=== PATIENT | male | born 1975 | race Caucasian/White ===

== ENCOUNTER 2018-01-29 11:19 | Observation (INO) | payer OTHER ==
[~2018-01-29] VITALS: Ht 175.3 cm; Wt 100.0 kg
[~2018-01-29 11:19] MED LIST: CIPROFLOXACN500 MG PO; LEVAQUIN500 MG PO; MELATONIN1 M1 PO; METRONIDAZOL500 MG PO; MULTIVITAMIN ME1 TAB PO
[2018-01-29] MEDS ORDERED: TOPIRAMATE50 MG PO (11:25)
[2018-01-29] MEDS ORDERED: ESCITALOPRAM OX10 MG PO (11:26)
[2018-01-29] MEDS ORDERED: DIVALPROEX SOD250 MG PO (11:26)
[2018-01-29 11:54] LABS: URINE BILIRUBIN - DIPSTICK NEGATIVE (NEGATIVE); URINE BLOOD DIPSTICK NEGATIVE (NEGATIVE); URINE COLOR YELLOW; URINE GLUCOSE - DIPSTICK NEGATIVE (NEGATIVE); URINE KETONE NEGATIVE (NEGATIVE); URINE LEUK ESTERASE NEGATIVE (NEGATIVE); URINE NITRITE - DIPSTICK NEGATIVE (Negative); URINE PROTEIN - DIPSTICK NEGATIVE (NEG-TRACE); URINE SPECIFIC GRAVITY <=1.005; URINE UROBILINOGEN - DIPSTICK 0.2 E.U./dL (0.2)
[2018-01-29 12:02] LABS: URINE CLARITY CLEAR
[2018-01-29 12:04] LABS: HEMATOCRIT 45.6 % (39.0-50.0); HEMOGLOBIN 15.4 g/dl (14.0-18.0); IMMATURE GRANULOCYTES 0.3 % (0.0-1.0); MEAN CELL VOLUME 84.3 fL CALC (80.0-100.0); MEAN CORPUSCULAR HGB 28.5 pG CALC (26.0-32.0); MEAN CORPUSCULAR HGB CONC 33.8 g/L CALC (32.0-36.0); NEUT# 7.07 thou/uL (1.82-7.42); RED BLOOD COUNT 5.41 mill/uL (4.70-6.10); RED CELL DISTRI WIDTH 15.2 % (11.5-15.5)
[2018-01-29 12:12] LABS: ALBUMIN 4.7 g/dL (3.2-5.0); ALKALINE PHOSPHATASE 68 u/l (38-126); ANION GAP 20 (6-22 (CALC)); BILIRUBIN, TOTAL 1.1 mg/dL (0.0-1.4); BUN 12 mg/dL (9-20); BUN/CREATININE RATIO 12 (12-20 (CALC)); CARBON DIOXIDE 20 mmol/l (22-30); CHLORIDE 103 mmol/l (95-108); GFR > 60 ML/MIN (>=60 (CALC)); GFR FOR AFR.AMER. > 60 ML/MIN (>=60 (CALC)); LIPASE 31 u/l (23-300); SGOT/AST 21 u/l (17-59); SGPT/ALT 36 u/l (21-72); SODIUM 139 mmol/l (137-146); TOTAL PROTEIN 7.6 g/dL (6.3-8.2)
[2018-01-29 12:14] LABS: POTASSIUM 3.5 mmol/l (3.5-5.1)
[2018-01-29 14:30] VITALS: BP 117/76
[2018-01-29 19:15] VITALS: BP 108/67
[2018-01-29 23:25] VITALS: BP 123/72
[2018-01-29 23:27] LABS: C. DIFFICILE TOXIN A&B NEGATIVE (NEGATIVE)
[2018-01-30 04:40] VITALS: BP 91/61
[2018-01-30 07:44] VITALS: BP 107/61
[2018-01-30] MEDS ORDERED: METRONIDAZOL500 MG PO (11:27)
== END 2018-01-30 12:30 | disposition home or self-care (01) | DRG 392 ==
LOC: ED 11:19 → ED-I 13:32 → ED 13:50 → MS2 13:51
PROVIDERS: Family Medicine; ADMIT Internal Medicine; ATTEND Internal Medicine
DX: R19.7 Diarrhea, unspecified (principal); R11.0 Nausea; E86.0 Dehydration; I10 Essential (primary) hypertension; F31.9 Bipolar disorder, unspecified; F43.10 Post-traumatic stress disorder, unspecified; R73.03 Prediabetes; Z85.820 Personal history of malignant melanoma of skin
CPT/HCPCS: G0378; Q9967

== ENCOUNTER → 2019-01-05 | Outpatient (REF) ==
[~2019-01-05] MED LIST changes: +DIVALPROEX SOD250 MG PO; +ESCITALOPRAM OX10 MG PO; +TOPIRAMATE50 MG PO
== END | disposition home or self-care (01) | DRG 642 ==
LOC: LAB 07:48
PROVIDERS: ATTEND Nurse Practitioner Family
DX: E78.2 Mixed hyperlipidemia (principal); R53.83 Other fatigue; R63.5 Abnormal weight gain

== ENCOUNTER 2019-04-02 18:57 | Emergency (ER) | payer OTHER ==
[~2019-04-02] VITALS: Ht 175.3 cm; Wt 100.0 kg
[2019-04-02] MEDS ORDERED: DIVALPROEX SOD500 M2 PO (19:18)
[2019-04-02] MEDS ORDERED: TOPAMAX50 MG PO (19:18)
[2019-04-02] MEDS ORDERED: ESCITALOPRAM OX20 MG PO (19:18)
[2019-04-02 21:00] VITALS: BP 116/84
== END 2019-04-02 21:00 | disposition home or self-care (01) | DRG 556 ==
LOC: ED 18:57
DX: M25.571 Pain in right ankle and joints of right foot (principal); M25.471 Effusion, right ankle

== ENCOUNTER 2019-06-30 07:38 | Emergency (ER) | payer OTHER ==
[~2019-06-30] VITALS: Ht 175.3 cm; Wt 108.2 kg
[~2019-06-30 07:38] MED LIST changes: +DIVALPROEX SOD500 M2 PO; +ESCITALOPRAM OX20 MG PO; +TOPAMAX50 MG PO
[2019-06-30] MEDS ORDERED: PROTONIX20 MG PO (08:00)
[2019-06-30] MEDS ORDERED: DEPAKOTE250 MG PO (08:06)
[2019-06-30] MEDS ORDERED: VITAMIN D2000 UNI1 PO (08:07)
[2019-06-30] MEDS ORDERED: TORADOL PO (08:46)
[2019-06-30] MEDS ORDERED: MEDDOSEPAK PO (08:46)
[2019-06-30 09:00] VITALS: BP 122/77
== END 2019-06-30 09:20 | disposition home or self-care (01) | DRG 556 ==
LOC: ED 07:38
DX: M25.562 Pain in left knee (principal)

== ENCOUNTER 2020-01-16 | Emergency (ER) | payer OTHER ==
[~2020-01-16] MED LIST changes: +DEPAKOTE250 MG PO; +MEDDOSEPAK PO; +PROTONIX20 MG PO; +TORADOL PO; +VITAMIN D2000 UNI1 PO
[2020-01-16] MEDS ORDERED: ABILIFY10 M1 PO (08:04)
[2020-01-16] MEDS ORDERED: PROTONIX40 M2 PO (08:05)
== END 2020-01-16 09:42 | disposition home or self-care (01) | DRG 103 ==
DX: G43.909 Migraine, unspecified, not intractable, without status migrainosus (principal)

== ENCOUNTER 2020-03-29 | Emergency (ER) | payer OTHER ==
[~2020-03-29] MED LIST changes: +ABILIFY10 M1 PO; +PROTONIX40 M2 PO
[2020-03-29 10:39] LABS: HEMATOCRIT 42.4 % (39.0-50.0); HEMOGLOBIN 14.1 g/dl (14.0-18.0); IMMATURE GRANULOCYTES 0.7 % (0.0-5.0); MEAN CELL VOLUME 84.6 fL CALC (80.0-100.0); MEAN CORPUSCULAR HGB 28.1 pG CALC (26.0-32.0); MEAN CORPUSCULAR HGB CONC 33.3 g/dL CAL (32.0-36.0); NEUT# 2.94 thou/uL (1.82-7.42); RED BLOOD COUNT 5.01 mill/uL (4.70-6.10)
[2020-03-29 11:02] LABS: ALBUMIN 4.1 g/dL (3.2-5.0); ALKALINE PHOSPHATASE 76 u/l (38-126); AMYLASE 36 u/l (30-110); ANION GAP 14 (6-22 (CALC)); BILIRUBIN, TOTAL 0.5 mg/dL (0.0-1.4); BUN 10 mg/dL (9-20); BUN/CREATININE RATIO 13 (12-20 (CALC)); CARBON DIOXIDE 21 mmol/l (22-30); CHLORIDE 107 mmol/l (95-108); CREATININE 0.8 mg/dL (0.7-1.3); GFR > 60 ML/MIN (>=60 (CALC)); GFR FOR AFR.AMER. > 60 ML/MIN (>=60 (CALC)); LIPASE 64 u/l (23-300); POTASSIUM 4.2 mmol/l (3.5-5.1); SGOT/AST 31 u/l (17-59); TOTAL PROTEIN 7.1 g/dL (6.3-8.2)
[2020-03-29 11:06] LABS: SODIUM 138 mmol/l (137-146)
[2020-03-29 11:30] LABS: URINE BILIRUBIN - DIPSTICK NEGATIVE (NEGATIVE); URINE BLOOD DIPSTICK NEGATIVE (NEGATIVE); URINE COLOR YELLOW; URINE GLUCOSE - DIPSTICK NEGATIVE (NEGATIVE); URINE KETONE NEGATIVE (NEGATIVE); URINE LEUK ESTERASE NEGATIVE (NEGATIVE); URINE NITRITE - DIPSTICK NEGATIVE (Negative); URINE PH 7.5 (4.5-8.0); URINE PROTEIN - DIPSTICK NEGATIVE (NEG-TRACE); URINE UROBILINOGEN - DIPSTICK 0.2 E.U./dL (0.2)
[2020-03-29] MEDS ORDERED: COLACE100 MG PO (12:50)
== END 2020-03-29 13:00 | disposition home or self-care (01) | DRG 392 ==
DX: K59.00 Constipation, unspecified (principal)
CPT/HCPCS: Q9967

== ENCOUNTER 2022-10-10 07:32 | Emergency (ER) | payer BC ==
[~2022-10-10] VITALS: Ht 175.3 cm; Wt 115.0 kg
[~2022-10-10 07:32] MED LIST changes: +COLACE100 MG PO
[2022-10-10 08:03] VITALS: BP 125/85
[2022-10-10] MEDS ORDERED: CRESTOR20 MG PO (08:08)
[2022-10-10 08:30] VITALS: BP 110/76
[2022-10-10 08:52] LABS: ALBUMIN 4.1 g/dL (3.2-5.0); ALKALINE PHOSPHATASE 72 u/l (38-126); ANION GAP 15 (6-22 (CALC)); BILIRUBIN, TOTAL 0.4 mg/dL (0.0-1.4); BUN 8 mg/dL (9-20); BUN/CREATININE RATIO 11 (12-20 (CALC)); CARBON DIOXIDE 22 mmol/l (22-30); CHLORIDE 108 mmol/l (95-108); CREATININE 0.7 mg/dL (0.7-1.3); GFR FOR AFR.AMER. > 60 ML/MIN (>=60 (CALC)); GFR OTHER RACES > 60 ML/MIN (>=60 (CALC)); LIPASE 79 u/l (23-300); POTASSIUM 4.1 mmol/l (3.5-5.1); SGOT/AST 32 u/l (17-59); SODIUM 141 mmol/l (137-146); TOTAL PROTEIN 7.4 g/dL (6.3-8.2)
[2022-10-10 09:16] LABS: HEMATOCRIT 38.7 % (39.0-50.0); HEMOGLOBIN 12.8 g/dl (14.0-18.0); IMMATURE GRANULOCYTES 0.2 % (0.0-5.0); MEAN CELL VOLUME 85.2 fL CALC (80.0-100.0); MEAN CORPUSCULAR HGB 28.2 pG CALC (26.0-32.0); MEAN CORPUSCULAR HGB CONC 33.1 g/dL CAL (32.0-36.0); NEUT# 3.53 thou/uL (1.82-7.42); RED BLOOD COUNT 4.54 mill/uL (4.70-6.10); RED CELL DISTRI WIDTH 14.6 % (11.5-15.5)
[2022-10-10] MEDS ORDERED: METRONIDAZOLE500 MG PO (10:08)
[2022-10-10] MEDS ORDERED: ZOFRAN4 MG/TAB PO (10:08)
[2022-10-10] MEDS ORDERED: CIPROFLOXACN500 MG PO (10:08)
[2022-10-10 10:39] VITALS: BP 110/76
== END 2022-10-10 10:50 | disposition home or self-care (01) | DRG 392 ==
LOC: ED 07:32
PROVIDERS: Family Medicine
DX: K52.9 Noninfective gastroenteritis and colitis, unspecified (principal)
CPT/HCPCS: Q9967

== ENCOUNTER 2023-04-04 23:00 | Emergency (ER) | payer OTHER ==
[~2023-04-04] VITALS: Ht 175.3 cm; Wt 108.0 kg
[~2023-04-04 23:00] MED LIST changes: +CRESTOR20 MG PO; +METRONIDAZOLE500 MG PO; +ZOFRAN4 MG/TAB PO
[2023-04-04 23:11] VITALS: BP 130/87
[2023-04-04 23:15] VITALS: BP 127/85
[2023-04-04 23:30] VITALS: BP 125/88
[2023-04-04 23:45] VITALS: BP 117/82
[2023-04-04 23:46] LABS: URINE BLOOD DIPSTICK LARGE (NEGATIVE); URINE COLOR BROWN; URINE KETONE TRACE mg/dL (NEGATIVE); URINE LEUK ESTERASE TRACE (NEGATIVE); URINE PROTEIN - DIPSTICK >=300 mg/dL (NEG-TRACE); URINE SPECIFIC GRAVITY 1.025
[2023-04-04 23:48] LABS: URINE BILIRUBIN - DIPSTICK SEE COMMNET (NEGATIVE); URINE NITRITE - DIPSTICK NEGATIVE (Negative)
[2023-04-04] MEDS ORDERED: ALLEGRA ALLERGY60 MG PO (23:48)
[2023-04-04] MEDS ORDERED: DEPAKOTE ER500 MG PO (23:50)
[2023-04-04] MEDS ORDERED: LEXAPRO20 MG PO (23:52)
[2023-04-04 23:55] LABS: URINE GLUCOSE - DIPSTICK NEGATIVE (NEGATIVE)
[2023-04-04] MEDS ORDERED: OXYBUTYNIN CHLOR5 M2 PO (23:55)
[2023-04-04 23:56] LABS: URINE BACTERIA MODERATE hpf; URINE EPITHELIAL CELLS FEW EPI/hpf (0-FEW); URINE RBC >100 RBC/hpf (0-5)
[2023-04-04] MEDS ORDERED: ALLERGY RE50 MCG/ACT PO (23:57)
[2023-04-04] MEDS ORDERED: METFORMIN500 M2 PO (23:58)
[2023-04-05] VITALS: BP 116/70
[2023-04-05] MEDS ORDERED: METAMUCIL28 % PO (00:01)
[2023-04-05 00:15] VITALS: BP 119/79
[2023-04-05] MEDS ORDERED: BACTRIM DS1 TAB PO (00:21)
[2023-04-05 00:30] VITALS: BP 113/91
== END 2023-04-05 00:38 | disposition home or self-care (01) | DRG 690 ==
LOC: ED 23:00
PROVIDERS: Family Medicine
DX: N39.0 Urinary tract infection, site not specified (principal); B96.20 Unspecified Escherichia coli [E. coli] as the cause of diseases classified elsewhere

== ENCOUNTER 2023-12-10 11:42 | Emergency (ER) | payer SELFPAY ==
[2023-12-10] VITALS (9 sets, daily range): BP systolic 105–139; BP diastolic 75–88
[~2023-12-10] VITALS: Ht 175.3 cm; Wt 102.0 kg
[~2023-12-10 11:42] MED LIST changes: +ALLEGRA ALLERGY60 MG PO; +ALLERGY RE50 MCG/ACT PO; +AMARYL4 MG PO; +BACTRIM DS1 TAB PO; +DEPAKOTE ER500 MG PO; +LEXAPRO20 MG PO; +METAMUCIL28 % PO; +METFORMIN500 M2 PO; +OXYBUTYNIN CHLOR5 M2 PO
[2023-12-10 12:28] LABS: BASO% 0.2 % (0-3); EOS% 1.1 % (0-8); HEMATOCRIT 44.4 % (39.0-50.0); HEMOGLOBIN 14.4 g/dl (14.0-18.0); IMMATURE GRANULOCYTES 0.3 % (0.0-5.0); LYMPH% 34.4 % (15-41); MEAN CELL VOLUME 84.4 fL CALC (80.0-100.0); MEAN CORPUSCULAR HGB 27.4 pG CALC (26.0-32.0); MEAN CORPUSCULAR HGB CONC 32.4 g/dL CAL (32.0-36.0); NEUT# 3.41 thou/uL (1.82-7.42); RED BLOOD COUNT 5.26 mill/uL (4.70-6.10)
[2023-12-10 12:30] LABS: ALBUMIN 4.6 g/dL (3.2-5.0); ALKALINE PHOSPHATASE 61 u/l (38-126); ANION GAP 16 (6-22 (CALC)); BILIRUBIN, TOTAL 0.5 mg/dL (0.2-1.3); BUN 7 mg/dL (9-20); BUN/CREATININE RATIO 7 (12-20 (CALC)); CARBON DIOXIDE 22 mmol/l (22-30); CHLORIDE 110 mmol/l (95-108); GFR FOR AFR.AMER. > 60 ML/MIN (>=60 (CALC)); GFR OTHER RACES > 60 ML/MIN (>=60 (CALC)); POTASSIUM 4.6 mmol/l (3.5-5.1); SGOT/AST 29 u/l (17-59); SODIUM 143 mmol/l (137-146); TOTAL PROTEIN 7.9 g/dL (6.3-8.2)
[2023-12-10 13:45] LABS: URINE BILIRUBIN - DIPSTICK Negative (NEGATIVE); URINE BLOOD DIPSTICK Negative (NEGATIVE); URINE GLUCOSE - DIPSTICK Negative (NEGATIVE); URINE KETONE 15 mg/dL (NEGATIVE); URINE LEUK ESTERASE Negative (NEGATIVE); URINE NITRITE - DIPSTICK Negative (Negative); URINE PH 5.5 (4.5-8.0); URINE PROTEIN - DIPSTICK Negative (NEG-TRACE); URINE UROBILINOGEN - DIPSTICK 0.2 E.U./dL (0.2)
[2023-12-10 13:47] LABS: URINE COLOR Yellow
[2023-12-10] MEDS ORDERED: AZITHROMYCIN500 MG PO (14:11)
== END 2023-12-10 14:17 | disposition home or self-care (01) | DRG 866 ==
LOC: ED 11:42
PROVIDERS: Family Medicine; Nurse Practitioner
DX: B34.9 Viral infection, unspecified (principal); Z20.822 Contact with and (suspected) exposure to COVID-19